=== PATIENT | female | born 1975 | race Caucasian/White ===

== ENCOUNTER 2016-10-19 17:17 | Emergency (ER) | payer OTHER ==
[~2016-10-19] VITALS: Ht 162.6 cm; Wt 55.8 kg
[~2016-10-19 17:17] MED LIST: ALBU1AER9 INH; FLUV1CAP11 PO; LAMO1TAB21 PO; PRAZ1CAP PO; PRZ1 PO; ZLF/100 PO; ZOLP10TA6 PO
[2016-10-19 17:21] VITALS: TEMP 36.6; Ht 162.6 cm; Wt 55.8 kg
[2016-10-19] MEDS ORDERED: SPRIN/30 INH (17:35)
[2016-10-19] MEDS ORDERED: ZOLP10TA PO (17:35)
[2016-10-19] MEDS ORDERED: PRAZ2CAP3 PO (17:35)
[2016-10-19] MEDS ORDERED: OXCA150T2 PO (17:35)
[2016-10-19] MEDS ORDERED: VENL150C56 PO (17:35)
[2016-10-19] MEDS ORDERED: TOPI200T14 PO (17:35)
[2016-10-19] MEDS ORDERED: HYDR-5688 PO (17:45)
[2016-10-19] MEDS ORDERED: PENI-82 PO (17:45)
--- NOTE | 2016-10-19 17:46 | EMERGENCY ROOM VISIT NOTE ---
ED Visit Note First contact with patient: 17:23 CHIEF COMPLAINT: Toothache HISTORY OF PRESENT ILLNESS: This 41-year-old female patient presented to the emergency department ambulatory complaining of pain in the front teeth which began today. The patient states that she has had "bad teeth" for the past several years. She states that one of the front teeth broke off today at approximately 1 AM. She has had increased pain since then and states this has been causing a headache as well. She has been taking Motrin without relief. She rates the discomfort a 9/10. The patient states that she recently was set up with dental insurance but has not been able to find a dentist or oral surgeon which takes her insurance. She denies any discharge from the mouth or fever. She is a smoker. REVIEW OF SYSTEMS: A 6 system review of systems was completed with positives and pertinent negatives listed in the HPI. ALLERGIES:. Fluoxetine, guanfacine, IV contrast dye, tramadol MEDICATIONS: See med list PMH: No pertinent past medical history. SOCIAL HISTORY: The patient lives locally with family. She is a smoker. She denies alcohol use. PHYSICAL EXAM: Vitals are noted on the nurse's note and reviewed by myself. Vital signs stable. Temperature 36.6C orally. GENERAL: This is a 41-year-old female, in no acute distress, nondiaphoretic, well-developed well-nourished. Mouth: The teeth are extremely carious and the left frontal incisor a stroke and off and the nerve exposed. There is swelling and mild erythema of the gum surrounding this tooth. No discharge or signs of an abscess. The remainder of the pharynx and tonsils are without erythema, edema, or exudate. The airway is patent. There is no facial swelling, cervical or submandibular lymphadenopathy. The patient appears uncomfortable and in pain. The patient has overall very poor dental hygiene. EARS: External auditory canals clear, tympanic membranes pearly day without erythema or effusion bilaterally. ED COURSE: The patient was evaluated as above. She has multiple dental caries and does have some swelling of the gum where the tooth recently fell out. She has no fevers. There is no discharge or sign of an abscess at this time. No evidence of Rui angina. The patient will be treated with penicillin and given a short course of pain medication. She was instructed to call her insurance company to find a dentist or oral surgeon who takes her insurance. She was instructed to stop smoking. She was given a small amount of dental wax to use for symptomatic relief as well. She verbalized understanding and was discharged home in good condition. Patient was reviewed in the [place] prescription drug monitoring program; no red flags were identified. Medication reconciliation: I attest that I have personally reviewed the patient 's current medication list. Blood Pressure Screening: Patient was found to have a slightly elevated blood pressure due to circumstances. I do not believe that the patient requires hypertension monitoring. DIAGNOSIS: Odontalgia Problem List Medical Problems: (1) Bipolar Disorder, Unspecified Status: Chronic (2) Hysterectomy Status: Resolved (3) Multiple Sclerosis Status: Chronic (4) Pneumonia, Organism Nos Status: Resolved (5) Tubal Ligation Status Status: Resolved Current/Historical Medications Scheduled Oxcarbazepine (Trileptal), 450 MG PO BID Penicillin V Potassium (Veetids), 500 MG PO QID Prazosin Hcl (Prazosin), 4 MG PO HS Tiotropium [place] (Spiriva Handihaler), 1 CAP INH DAILY Topiramate (Topamax), 200 MG PO BID Venlafaxine Hcl (Effexor Extended Rel), 300 MG PO DAILY Zolpidem Tartrate (Ambien), 10 MG PO HS Scheduled PRN Albuterol Sulfate (Proair Hfa), 2 PUFF INH Q4 PRN for SOB/Wheezing Hydrocodone/Acetaminophen 5MG/325MG ([place] 5MG/325MG), 1-2 TABLET PO Q4H PRN for Pain Allergies Coded Allergies: Iodinated Contrast Media (Verified Allergy, Unknown, ?, 10/19/16) Tramadol (Unverified Allergy, Unknown, hives, 10/19/16) Fluoxetine (Unverified Adverse Reaction, Severe, CONFUSION, 10/19/16) Guanfacine (Verified Adverse Reaction, Unknown, Hallucinations/spaced out. , 10/19/16) Reported by PT. Vital Signs Date Time Temp Pulse Resp B/P (MAP) Pulse Ox O2 Delivery O2 Flow Rate FiO2 10/19/16 17:57 85 20 145/73 97 10/19/16 17:21 36.6 100 18 126/79 97 Room Air Departure Information Impression Primary Impression: Dental caries Dispostion Home / Self-Care Condition GOOD Prescriptions Hydrocodone/Acetaminophen 5MG/325MG ([place] 5MG/325MG) Tab 1-2 TABLET PO Q4H Y for Pain, #12 TAB For Initial Treatment Prov: Mahogany Mcnamara PA-C 10/19/16 Penicillin V Potassium (Veetids) 500 Mg Tab 500 MG PO QID for 10 Days, #40 TAB Prov: Mahogany Mcnamara PA-C 10/19/16 Referrals No Doctor, Assigned (PCP) Patient Instructions [facility] Additional Instructions You have been treated in the Emergency Department for Dental Pain. You were prescribed penicillin to be taken 4 times daily as prescribed. This is an antibiotic. All antibiotics have the potential to cause diarrhea. Stop this medication and contact a medical provider if you were to develop any significant adverse side effects including: wheezing, shortness of breath, passing out, vomiting, or a diffuse rash. Always take antibiotics as directed and COMPLETE the ENTIRE course regardless of the improvement of your symptoms. You have been prescribed [place] to be used for pain control. Take 1-2 tablets every 4-6 hours as needed for pain. This is a narcotic medication. You cannot drive or consume alcohol while on this medicine. This medicine should only be used for pain that cannot be controlled with [id number] pain medicines. For pain control, you can use the following [id number]-zgzkzgn medicines (if >12 yo): - Regular strength (325mg/tab) Tylenol (acetaminophen) 2 tabs every 4-6 hours as needed. Do not exceed 12 tablets in a 24 hour period. Avoid taking more than 4 grams (4000 mg) of Tylenol per day. This includes any other sources of acetaminophen you may take on a regular basis. - Regular strength (200 mg/tab) Advil (ibuprofen) 1-2 tabs every 4-6 hours as needed. Do not exceed a dose of 3200 mg per day. Refrain from smoking cigarettes or using chewing tobacco until you have been evaluated by your dentist. Keeping beverages lukewarm and consuming soft foods can decrease your pain. Warm compresses over the affected area may offer some relief. You MUST seek evaluation of your dental pain by a dentist following your visit to the Emergency Department. The Emergency Department is not capable of treating dental issues long-term. You should call your dentist as soon as possible to make an appointment for evaluation of your dental pain. Return to the emergency department if you develop the following symptoms despite treatment course outlined above: fever, intractable pain, increased redness, swelling, or purulent discharge.
[2016-10-19 17:57] VITALS: BP 145/73; PULSE 85; O2SAT 97
== END 2016-10-19 17:59 | disposition home or self-care (01) ==
LOC: C.EDB 17:18 → C.EDD 17:59
DX: K02.9 Dental caries, unspecified (principal); K08.89 Other specified disorders of teeth and supporting structures; G35 Multiple sclerosis; F17.200 Nicotine dependence, unspecified, uncomplicated; Z87.01 Personal history of pneumonia (recurrent); Z98.51 Tubal ligation status; Z90.710 Acquired absence of both cervix and uterus